=== PATIENT | female | born 1940 | race Two or more races ===

== ENCOUNTER 2025-04-12 23:31 | Inpatient (IN) | payer OTHER ==
[~2025-04-12] VITALS: Ht 152.4 cm; Wt 36.5 kg
--- NOTE | 2025-04-12 23:59 | ED.PDOC ---
History of Present Illness HPI Comments 85-year-old female with a history of hypertension asthma brought in by EMS from [facility] as a transfer. Patient was seen there for dizziness and nausea that started last night, associated with elevated blood pressure in the 200s over high 80s. Patient was found to have elevated troponin I of 0.1. On arrival to our ED, patient denies any history of heart disease, current chest pain, shortness of breath or other symptoms. Chief Complaint: High blood pressure Time Seen by MD: 00:02 Reviewed Notes: Medicine Assistant Notes Information Source: Patient, Emergency Med Personnel Mode of Arrival: EMS Severity: Moderate Timing: Hours Duration: Since onset Past Medical History PAST MEDICAL HISTORY: Asthma, HTN Surgical History: Denies all surgeries PERSONAL SHOPPER History: Denies all PERSONAL SHOPPER Hx Family History Family History: Reviewed,noncontributory to illness Social History Smoker: Non-Smoker Alcohol: Denies ETOH Use Drugs: Denies Drug Use Lives In: Home Constitutional: reports: weakness; denies: chills, diaphoresis, fatigue, fever, malaise, sweats, others EENTM: denies: blurred vision, double vision, ear bleeding, ear discharge, ear drainage, ear pain, ear ringing, eye pain, eye redness, hearing loss, mouth pain, mouth swelling, nasal discharge, nose bleeding, nose congestion, nose pain, photophobia, tearing, throat pain, throat swelling, voice changes, others Respiratory: denies: cough, hemoptysis, orthopnea, SOB at rest, shortness of breath, SOB with excertion, stridor, wheezing, others Cardiovascular: denies: chest pain, dizzy spells, diaphoresis, Dyspnea on exertion, edema, irregular heart beat, left arm pain, lightheadedness, palpitations, PND, syncope, others Gastrointestinal: reports: nausea, vomiting; denies: abdomen distended, abdominal pain, blood streaked bowels, constipated, diarrhea, dysphagia, difficulty swallowing, hematemesis, melena, poor appetite, poor fluid intake, rectal bleeding, rectal pain, others Genitourinary: denies: abnormal vagina bleeding, burning, dyspareunia, dysuria, flank pain, frequency, hematuria, incontinence, pain, , vagina discharge, urgency, others Neurological: denies: dizziness, fainting, headache, left sided numbness, left sided weakness, numbness, paresthesia, pre-existing deficit, right sided numbness, right sided weakness, seizure, speech problems, tingling, tremors, weakness, others Musculoskeletal: denies: back pain, gout, joint pain, joint swelling, muscle pain, muscle stiffness, neck pain, others Integumetry: denies: bruises, change in color, change in hair/nails, dryness, laceration, lesions, lumps, rash, wounds, others Allergic/Immunocompromised: denies: Difficulty Healing, Frequent Infections, Hi ves, Itching, others Hematologic/Lymphatic: denies: anemia, blood clots, easy bleeding, easy bruising, swollen glands, others Endocrine: denies: excessive hunger, excessive sweating, excessive thirst, excessive urination, flushing, intolerance to cold, intolerance to heat, unexplained weight gain, unexplained weight loss, others Psychiatric: denies: anxiety, bipolar disorder, depression, hopeless, panic disorder, schizophrenia, sleepless, suicidal, others Physical Exam General Appearance: No Apparent Distress HEENT: Other (Pupils and face symmetric. Moist mucous membranes.) Neck: Full Range of Motion, Normal Inspection Respiratory: Lungs Clear, No Accessory Muscle Use, No Respiratory Distress, Normal Breath Sounds Cardiovascular: No Edema, No JVD, Regular Rate/Rhythm Breast Exam: Deferred Gastrointestinal: Non Tender, Soft Genitalia: Deferred Pelvic: Deferred Rectal: Deferred Extremities: Normal inspection, Normal range of motion, Non-tender, No pedal edema Neurologic: Alert (Oriented x4), Normal Affect, Normal Mood Cerebellar Function: NOT DONE Reflexes: NOT DONE Skin: Dry, Normal Color, Warm Lymphatic: NOT DONE Was a procedure done? Was a procedure done?: No EKG EKG : Comments Sinus rhythm, rate 81, normal intervals, normal axis, LVH, inferior and lateral T-wave inversion, occasional PVC Differential Dx Considerations may include: ACS, HI, arrhythmia, among others X-Ray, Labs, Meds, VS Vital Signs Date Time Temp Pulse Resp B/P (MAP) Pulse Ox O2 Delivery O2 Flow Rate FiO2 04/13/25 01:24 109 18 97 Room Air* 0 21 04/13/25 01:24 98.1 109 18 166/78 (107) 98 98.1 04/12/25 23:45 81 04/12/25 23:40 82 04/12/25 23:40 98.7 82 14 154/61 (92) 94 98.7 Lab Test 04/13/25 01:01 04/13/25 00:06 Range/Units Troponin I High Sensitivity 154 *H 133 *H </=34 ng/L X-Ray, Labs, Meds, VS Comment 85-year-old female with a history of hypertension and asthma transferred from [facility] with elevated troponin I. Workup from [facility] was reviewed, including CBC, CMP, troponin, renal ultrasound, CT abdomen and pelvis showing cholelithiasis, hepatic and renal cysts, and a distended urinary bladder. Head CT showed nothing acute. Vitals here are unremarkable Exam is unremarkable Rhythm strip independently interpreted by me: Sinus rhythm, rate 81, no ectopy. Chest X-ray Troponin 133 No acute treatment indicated in the ED here. Plan is to admit the patient for Cardiology evaluation. Time of 1ST Reevaluation: 00:00 Reevaluation 1ST: Unchanged Patient Education/Counseling: Diagnosis, Treatment Family Education/Counseling: No Family Present SEPSIS Sepsis Screen Physician Orders Electrocardigram (04/12/25 23:49) Troponin-I Hs (04/13/25 02:56) Chest Xray 1 View (04/13/25 00:33) Vital Signs Date Time Temp Pulse Resp B/P (MAP) Pulse Ox O2 Delivery O2 Flow Rate FiO2 04/13/25 01:24 109 18 97 Room Air* 0 21 04/13/25 01:24 98.1 109 18 166/78 (107) 98 98.1 04/12/25 23:45 81 04/12/25 23:40 82 04/12/25 23:40 98.7 82 14 154/61 (92) 94 98.7 Departure 1 Departure Time of Disposition: 00:34 Impression: Primary Impression: Non-STEMI (non-ST elevated myocardial infarction) Disposition: 09 ADMITTED INPATIENT Admit to: Tele Condition: Guarded Critical Care Note Critical Care Time?: Yes (35 min-critical care time only) Critical care comment: Critical care time including multiple bedside re-evaluations, review of lab and imaging studies, and discussion of the case with the admitting provider. Patient is high risk for hemodynamic decompensation. Stability Stability form required: No Heart Score Heart Score: Heart Score Response (Comments) Value History Slightly Suspicious [address]-Deviation 2 Age >65 2 Risk Factors 1 or 2 risk factors 1 Troponin >3 x's Normal limit 2 Total 7 I personally scribed for ERIN RAY MD ([facility]) on 04/12/25 at 23:59. Electronically submitted by Gume Rosa ([facility]). I personally scribed for ERIN RAY MD ([email or web address]) on 04/13/25 at 00:02. Electronically submitted by Gume Rosa ([facility]). I personally scribed for ERIN RAY MD ([facility]) on 04/13/25 at 01:43. Electronically submitted by Gume Rosa ([facility]). ERIN RAY MD Apr 12, 2025 23:59
[2025-04-13 01:24] VITALS: PULSE 109; RESP 18; O2SAT 97
--- NOTE | 2025-04-13 02:15 | DVH ---
CHEST RADIOGRAPH Indication: Elevated troponin Technique: Single frontal view of the chest was obtained COMPARISON: None FINDINGS: Lines and Tubes: None Lungs: Clear Pleura: No effusion. No pneumothorax. Cardiomediastinal contours: Unremarkable Bones: Unremarkable IMPRESSION: 1. No acute disease.
[2025-04-13] MEDS ORDERED: HYDROcodone-ACET 5/325MG TAB PO PRN (03:45)
[2025-04-13] MEDS ORDERED: ONDANSETRON HCL 4 MG/2 ML VIAL IV PRN (03:45)
[2025-04-13] MEDS ORDERED: ACETAMINOPHEN 325 MG TAB PO PRN (03:45)
[2025-04-13] MEDS: SODIUM CHLORIDE 0.9% 1,000 ML IV SCH (03:45)
[2025-04-13] MEDS ORDERED: DOCUSATE SOD 100 MG CAP PO PRN (03:45)
[2025-04-13 04:17] LABS: Hematocrit 37.9 % (36.0-46.0); Hemoglobin 13.0 g/dL (12.2-16.2); Mean Corpuscular Hemoglobin 31.2 pg (28.0-32.0); Mean Corpuscular Volume 90.8 fL (80.0-100.0); Nucleated Red Blood Cells % 0.1 %
[2025-04-13 04:18] LABS: Alanine Aminotransferase 11 U/L (7-40); Alkaline Phosphatase 103 U/L (46-116); Anion Gap 16 (5-15); BUN/Creatinine Ratio 13.0 (10.0-20.0); Calcium 9.8 mg/dL (8.7-10.4); Glucose 95 mg/dL (74-106); Sodium 143 mmol/L (136-145); Total Protein 6.9 g/dL (5.7-8.2)
[2025-04-13 04:19] LABS: Albumin 4.3 g/dL (3.2-4.8); Bilirubin, Total 0.9 mg/dL (0.2-1.0)
[2025-04-13 04:31] LABS: Blood Urea Nitrogen 9 mg/dL (9-23); Carbon Dioxide 19 mmol/L (20-31); Chloride 108 mmol/L (98-107); Potassium 3.0 mmol/L (3.5-5.1)
[2025-04-13] MEDS ORDERED: MORPHINE SULFATE INJ 2 MG/ml SYRG IV PRN (05:15)
[2025-04-13] MEDS ORDERED: NITROGLYCERIN 0.4 MG SL TAB SL PRN (05:15)
--- NOTE | 2025-04-13 05:20 | DVHHP2 ---
History of Present Illness Reason for Visit: Non-STEMI (non-ST elevated myocardial infarction) History of Present Illness The patient is a 85-year-old female with past medical history of asthma and hyp ertension who presented to [facility] ED with complaint of generalized weakness transferred from [facility]. She was seen at the facility for dizziness, nausea, and associated elevated blood pressure in the 200s. Patient was seen and evaluated in the ED, laboratory data shows WBC 10.0, platelets 270, sodium 143, potassium 3.0, BUN nine, creatinine 0.69, glucose 95, calcium 9.8, troponin 135, blood pressure 166/78, heart rate 109, temperature 98.1 F, O2 saturation 97% on oxygen. Chest x-ray show no acute disease. Patient was given aspirin 325 mg p.o. x1, please see medication orders section in the computer. On my assessment, patient denied chest pain, no headache, no dizziness, no diaphoresis, currently on oxygen, no nausea, no vomiting, no fever, no chills. Patient was admitted for further evaluation and medical management. Past Medical History Asthma, HTN Past Surgical History Denies all surgeries Family History Reviewed, noncontributory to the management of this case. Past Social History The patient lives at home, denies smoking, alcohol or illicit drugs abuse. Review of Systems Constitutional: Yes: Weakness; No: Fever, Chills, Sweats, Malaise, Other Eyes: No: Pain, Vision change, Conjunctivae inflammation, Eyelid inflammation, Other, Redness ENT: No: Ear pain, Ear discharge, Nose pain, Nose discharge, Nose congestion, Mouth pain, Mouth swelling, Throat pain, Throat swelling, Other Respiratory: No: Cough, Dry, Shortness of breath, SOB with excertion, Wheezing, Hemoptysis, Pleuritic Pain, Sputum, Wheezing, Other Cardiovascular: No: Chest Pain, Palpitations, Orthopnea, Paroxysmal Noc. Dyspnea, Edema, Lt Headedness, Other Gastrointestinal: Nausea; No: Vomiting, Abdominal Pain, Diarrhea, Constipation, Melena, Hematochezia, Other Genitourinary: No Dysuria, No Frequency, No Incontinence, No Hematuria, No Retention, No Other Musculoskeletal: No: other, neck pain, shoulder pain, arm pain, back pain, hand pain, leg pain, foot pain Skin: No: Rash, Lesions, Jaundice, Bruising, Other Neurological: Other (Dizziness); No: Weakness, Numbness, Incoordination, Change in speech, Confusion, Seizures Allergies: Uncoded Allergies: nkda (Allergy, Unknown, 04/13/25) Medications Current Medications Medications Dose Ordered Sig/Zahra Route Start Time Stop Time Status Last Admin Dose Admin Aspirin 81 mg DAILY PO 04/13/25 10:00 Amlodipine Besylate 5 mg DAILY PO 04/13/25 10:00 Metoprolol Tartrate 25 mg BID PO 04/13/25 10:00 Clonidine HCl 0.1 mg Q4HP PRN PO 04/13/25 03:45 04/13/25 04:09 0.1 MG Sodium Chloride 1,000 ml @ 60 mls/hr [id number] IV 04/13/25 03:45 04/13/25 03:45 60 MLS/HR Acetaminophen/ Hydrocodone Bitart 1 tab Q4HP PRN PO 04/13/25 03:45 Ondansetron HCl 4 mg Q4HP PRN IV 04/13/25 03:45 Docusate Sodium 100 mg BIDPRN PRN PO 04/13/25 03:45 Acetaminophen 500 mg Q6HP PRN PO 04/13/25 03:45 Exam Vital Signs Vital Signs Date Time Temp Pulse Resp B/P (MAP) Pulse Ox O2 Delivery O2 Flow Rate FiO2 04/13/25 04:25 161/73 (102) 04/13/25 03:44 98.1 60 18 98 98.1 04/13/25 01:24 Room Air* 0 21 General Appearance: Alert, Oriented X3, Cooperative, No acute distress HEENT: Atraumatic, PERRLA, EOMI, Mucous membr. moist/pink Respiratory: Clear to auscultation, Normal air movement Cardiovascular: Regular rate, Normal S1, Normal S2, No murmurs Abdominal: Normal bowel sounds, Soft, No tenderness, No hepatospenomegaly, No masses Extremities: No clubbing, No cyanosis, No edema, Normal pulses, No tenderness/swelling Skin: No rashes, No breakdown, No significant lesion Neuro: Normal speech, Normal tone, Sensation intact, Cranial nerves 3-12 NL, Reflexes 2+, Other (Generalized weakness) Psych/Mental Status: Mental status NL, Mood NL Labs/Xrays Labs Test 04/13/25 02:50 04/13/25 00:06 Range/Units Troponin I High Sensitivity 135 *H </=34 ng/L White Blood Count 10.0 4.4-10.8 10^3/uL Red Blood Count 4.17 4.0-5.20 10^6/uL Hemoglobin 13.0 12.2-16.2 g/dL Hematocrit 37.9 36.0-46.0 % Mean Corpuscular Volume 90.8 80.0-100.0 fL Mean Corpuscular Hemoglobin 31.2 28.0-32.0 pg Mean Corpuscular Hemoglobin Concent 34.3 32.0-36.0 g/dL Red Cell Distribution Width 12.9 11.8-14.3 % Platelet Count 270 140-450 10^3/uL Mean Platelet Volume 7.6 6.9-10.8 fL Neutrophils (%) (Auto) 83.5 H 37.0-80.0 % Lymphocytes (%) (Auto) 9.6 L 10.0-50.0 % Monocytes (%) (Auto) 6.6 0.0-12.0 % Eosinophils (%) (Auto) 0.0 0.0-7.0 % Basophils (%) (Auto) 0.3 0.0-2.0 % Neutrophils # (Auto) 8.4 1.6-8.6 10 ^3/uL Lymphocytes # (Auto) 1.0 0.4-5.4 10 ^3/uL Monocytes # (Auto) 0.7 0-1.3 10 ^3/uL Eosinophils # (Auto) 0 0-0.8 10 ^3/uL Basophils # (Auto) 0 0-0.2 10 ^3/uL Nucleated Red Blood Cells 0.1 % Sodium Level 143 136-145 mmol/L Potassium Level 3.0 L 3.5-5.1 mmol/L Chloride Level 108 H 98-107 mmol/L Carbon Dioxide Level 19 L 20-31 mmol/L Anion Gap 16 H 5-15 Blood Urea Nitrogen 9 9-23 mg/dL Creatinine 0.69 0.550-1.02 mg/dL Glomerular Filtration Rate Calc 85 >90 mL/min BUN/Creatinine Ratio 13.0 10.0-20.0 Serum Glucose 95 74-106 mg/dL Calcium Level 9.8 8.7-10.4 mg/dL Total Bilirubin 0.9 0.2-1.0 mg/dL Aspartate Amino Transferase (AST) 24 <34 U/L Alanine Aminotransferase (ALT) 11 7-40 U/L Alkaline Phosphatase 103 46-116 U/L Total Protein 6.9 5.7-8.2 g/dL Albumin 4.3 3.2-4.8 g/dL PATIENT: AMBROSIO MILLER ACCT: [id number] UNIT: [id number] : 1940 LOC: ER ROOM / BED: / AGE / SEX: 85 / F ADM STATUS: REG ER SERVICE [id number] ORDERING PHYSICIAN: ERIN RAY MD PROCEDURE(s): CXR1 - CHEST XRAY 1 VIEW REASON: Elevated troponin ORDER NUMBER(s): [id number], ACCESSION NUMBER(s): [id number] CHEST RADIOGRAPH Indication: Elevated troponin Technique: Single frontal view of the chest was obtained COMPARISON: None FINDINGS: Lines and Tubes: None Lungs: Clear Pleura: No effusion. No pneumothorax. Cardiomediastinal contours: Unremarkable Bones: Unremarkable IMPRESSION: 1. No acute disease. Assessment/Plan Assessment/Plan Generalized weakness Hypertensive urgency Hypokalemia Non-STEMI (non-ST elevated myocardial infarction) Plan 1. Admit to telemetry unit 2. Breathing treatment 3. Pain control management 4. Management of fluids and electrolytes 5. Consultation for Cardiology 6. Diagnostic tests chest x-ray 7. DVT prophylaxis-on aspirin 8. Repeat labs CBC, CMP in a.m. 9. Continue with current medical management 10. Treatment plan discussed with patient and RN. Patient verbalized understanding. Plan discussed with: Patient, Other (RN) My Orders Orders - MURRAY ANDRES DNP Procedure Category Date Status Time * Cardiology Consult CONS 04/13/25 Transmitted 03:44 Aspirin Tablet PHA 04/13/25 In Process 10:00 Amlodipine Tablet PHA 04/13/25 In Process (Norvasc Tablet) 10:00 Metoprolol Tartrate PHA 04/13/25 In Process Tablet (Lopressor Ta 10:00 Clonidine Hcl Tablet PHA 04/13/25 In Process (Catapres Tablet) 03:45 Allergies CORBY 04/13/25 In Process 03:44 Code Status CODE 04/13/25 Transmitted 03:44 Sodium Chloride 0.9% PHA 04/13/25 In Process 03:45 Oxygen Per Hour RT 04/13/25 Transmitted 03:44 Hydrocodone-Acet PHA 04/13/25 In Process 5/325mg Tab ([place] 03:45 Ondansetron Hcl PHA 04/13/25 In Process (Zofran) 03:45 Docusate Sodium PHA 04/13/25 In Process Capsule (Colace 03:45 Fall Risk Precautions CORBY 04/13/[address] 03:44 Complete Blood Count LAB 04/14/25 Verified 04:00 Comprehensive LAB 04/14/25 Verified Metabolic Panel 04:00 Cardiac DIET 04/13/25 Transmitted Diet-2gna,Lofat,Lochol Breakfast Condition: Serious CORBY 04/13/25 In Process 03:44 Acetaminophen Tablet PHA 04/13/25 In Process (Tylenol Tablet) 03:45 Maintain Bed Rest CORBY 04/13/25 In Process 03:44 Sequential CORBY 04/13/25 In Process Compression Device Problem List: (1) Generalized weakness (2) Hypertensive urgency (3) Hypokalemia (4) Non-STEMI (non-ST elevated myocardial infarction) Date of Service: Apr 13, 2025 Billing Provider: MURRAY ANDRES DNP Common Visit Codes: [id number] INP/OBS CARE (HIGH) MURRAY ANDRES DNP Apr 13, 2025 05:20
[2025-04-13] MEDS: POTASSIUM CHL 20 Meq TABLET PO ONE ×2 (05:35→17:19)
--- NOTE | 2025-04-13 07:03 | ECG ---
[facility] Test Date: 2025-04-12 Test Time: 23:45:52 Pat Name: AMBROSIO MILLER Department: ED Room: [address] [place] [address] Gender: F Patient Service Representative: SU : 1940 Requested By: ERIN BROWN Order Number: [id number] Reading MD: Measurements Intervals Mobile Rate: 81 P: 34 WA: 173 QRS: -20 QRSD: 100 T: 258 QT: 386 QTc: 448 Interpretive Statements Sinus rhythm Ventricular premature complex Left atrial enlargement LVH with secondary repolarization abnormality Please click the below link to view image of tracing.
[2025-04-13 08:06] VITALS: PULSE 62; RESP 16; O2SAT 95
[2025-04-13] MEDS: METOPROLOL TARTRATE 25 MG TAB PO SCH (10:14)
[2025-04-13 11:20] LABS: Sodium 142 mmol/L (136-145)
[2025-04-13 11:21] LABS: Anion Gap 10 (5-15); Carbon Dioxide 24 mmol/L (20-31)
[2025-04-13 11:22] LABS: Calcium 9.8 mg/dL (8.7-10.4); Chloride 108 mmol/L (98-107); Potassium 3.1 mmol/L (3.5-5.1)
[2025-04-13 11:27] LABS: BUN/Creatinine Ratio 16.9 (10.0-20.0); Blood Urea Nitrogen 13 mg/dL (9-23); Magnesium 2.1 mg/dL (1.6-2.6); Triglycerides 84 mg/dL (< 150)
[2025-04-13 11:30] LABS: INR 1.01 (0.9-1.15); Partial Thromboplastin Time 25.6 SEC (24.5-34.5); Prothrombin Time 10.7 sec (9.3-11.8)
[2025-04-13 11:31] LABS: Cholesterol 244 mg/dL (< 200); Glucose 127 mg/dL (74-106); HDL Cholesterol 67 mg/dL (40-59)
[2025-04-13 17:00] VITALS: BP 131/56; PULSE 63; RESP 16; TEMP 98.5; O2SAT 97
[2025-04-13] MEDS ORDERED: THEO400T13 PO (17:12)
[2025-04-13] MEDS ORDERED: ATOR10TA PO (17:12)
[2025-04-13] MEDS ORDERED: ALBU108A5 IN (17:12)
[2025-04-13 20:00] VITALS: PULSE 46
[2025-04-13 21:00] VITALS: BP 146/56; PULSE 53; RESP 17; TEMP 98.4; O2SAT 95
--- NOTE | 2025-04-13 21:35 | DVHSR ---
APPROVED REPORT EXAM: Two-dimensional and M-mode echocardiogram with Doppler and color Doppler. Blood Pressure: 135/75 mmHg INDICATION Chest Pain RISK FACTORS Height: 5'0", Weight: 90 DIMENSIONS LVDd4.6 (3.8-5.7cm)LA (2D)3.5 (1.9-4.0cm)Aortic Root2.7 (2.0-3.7cm) LVDs3.3 (2.5-4.0cm)LA (MM) (1.9-4.0cm)Aortic Cusp Exc1.4 (1.5-2.0cm) EF (%) 50.0 (55-70%)Rt. Atrium4.0 (1.9-4.0cm)Asc. Aorta cm IVSd1.1 (0.7-1.1cm)RV (D)3.1 (1.8-2.4cm) PWd1.1 (0.7-1.1cm) Mitral Valve MitralMitral Stenosis E wave0.56m/sMV Mean GR.mmHg A wave1.07m/sMV Peak GR.mmHg E/A ratio0.52D MVAcm2 DECEL [id number] 1/2 Timems Aortic Valve Aortic ValveAortic Stenosis V10.90m/Branden Mean GR.5mmHg V21.49m/Branden Peak GR.9mmHg LVOT Diameter1.7 (1.8-2.4cm)Doppler AVA1.37cm2 AI P 1/2 Bcdo755.79ms Pulmonic Valve V20.94m/s Tricuspid Valve TR Velocity3.13m/s [id number] Other Information Technically limited study due to body habitus. Conclusion LV IS MODERATELY DILATED LOW NORMAL LV EJECTION FRACTION LV EF IS 50% NORMAL VALVES MODERATELY SEVERE AORTIC REGURGITATION SLIGHTLY DILATED RV MILD PULMONARY HYPERTENSION RVSP IS 42 MM OF HG AND IS HIGH NO EFFUSION
[2025-04-13 22:38] LABS: Urine Protein, UAD Negative (Negative)
[2025-04-14] VITALS (16 sets, daily range): BP systolic 136–167; BP diastolic 66–97; PULSE 52–78; RESP 12–18; TEMP 97.9–98.6; O2SAT 10–98
[2025-04-14] MEDS: hydrALAZINE HCL 20 MG/ML VL IV ONE (05:38)
[2025-04-14 06:19] LABS: Hematocrit 38.6 % (36.0-46.0); Hemoglobin 12.8 g/dL (12.2-16.2); Mean Corpuscular Hemoglobin 30.3 pg (28.0-32.0); Mean Corpuscular Volume 91.3 fL (80.0-100.0); Nucleated Red Blood Cells % 0.1 %
[2025-04-14 06:24] LABS: Alanine Aminotransferase 10 U/L (7-40); Albumin 4.0 g/dL (3.2-4.8); Alkaline Phosphatase 92 U/L (46-116); Anion Gap 11 (5-15); BUN/Creatinine Ratio 18.7 (10.0-20.0); Bilirubin, Total 1.0 mg/dL (0.2-1.0); Blood Urea Nitrogen 14 mg/dL (9-23); Calcium 9.5 mg/dL (8.7-10.4); Carbon Dioxide 25 mmol/L (20-31); Chloride 106 mmol/L (98-107); Glucose 79 mg/dL (74-106); Sodium 142 mmol/L (136-145); Total Protein 6.3 g/dL (5.7-8.2)
[2025-04-14 06:34] LABS: Potassium 3.1 mmol/L (3.5-5.1)
[2025-04-14] MEDS: POTASSIUM CHL 20 Meq TABLET PO ONE (08:28)
[2025-04-14] MEDS ORDERED: POTASSIUM CHL 20 Meq TABLET PO ONE (13:00)
[2025-04-14] MEDS: ATORVASTATIN 20 MG TAB PO ONE (13:00)
[2025-04-14] MEDS: cefTRIAXone 1GM/50ML D5W 50 ML IV ONE (13:00)
--- NOTE | 2025-04-14 13:00 | DVHPN2 ---
Subjective Seen and examined at bedside, for [facility] today. Family at bedside. Changes from previous H/P or p: No Changes Eyes: No Pain, No Vision change, No Conjunctivae inflammation, No Eyelid inflammation, No Other, No Redness ENT: No Ear pain, No Ear discharge, No Nose pain, No Nose discharge, No Nose congestion, No Mouth pain, No Mouth swelling, No Throat pain, No Throat swelling, No Other Cardiovascular: No Chest Pain, No Palpitations, No Orthopnea, No Paroxysmal Noc. Dyspnea, No Edema, No Lt Headedness, No Other Respiratory: No Cough, No Dry, No Shortness of breath, No SOB with excertion, No Wheezing, No Hemoptysis, No Pleuritic Pain, No Sputum, No Other Gastrointestinal: No Vomiting, No Abdominal Pain, No Diarrhea, No Constipation, No Melena, No Hematochezia, No Other Genitourinary: No Dysuria, No Frequency, No Incontinence, No Hematuria, No Retention, No Other Musculoskeletal: No other, No neck pain, No shoulder pain, No arm pain, No back pain, No hand pain, No leg pain, No foot pain Skin: No Rash, No Lesions, No Jaundice, No Bruising, No Other Objective Vitals Vital Signs Date Time Temp Pulse Resp B/P (MAP) Pulse Ox O2 Delivery O2 Flow Rate FiO2 04/14/25 09:29 75 04/14/25 09:00 98.5 18 150/74 (99) 96 98.5 04/14/25 08:00 Room Air* 0 21 Intake/Output Intake and Output 04/14/25 06:59 Intake Total 390 ml Output Total 1175 ml Balance -785 ml Intake Oral 150 ml IV Total 240 ml Output Urine Total 1175 ml General Appearance: Alert, Oriented X3, Cooperative, No acute distress Lungs: Clear to auscultation Cardiovascular: Regular rate, Normal S1, Normal S2 Psych/Mental Status: Mental status NL Medications Current Medications Medications Dose Ordered Sig/Zahra Route Start Time Stop Time Status Last Admin Dose Admin Aspirin 81 mg DAILY PO 04/13/25 10:00 04/14/25 08:28 81 MG Amlodipine Besylate 5 mg DAILY PO 04/13/25 10:00 04/14/25 08:29 5 MG Metoprolol Tartrate 25 mg BID PO 04/13/25 10:00 04/14/25 08:29 25 MG Clonidine HCl 0.1 mg Q4HP PRN PO 04/13/25 03:45 04/13/25 04:09 0.1 MG Acetaminophen/ Hydrocodone Bitart 1 tab Q4HP PRN PO 04/13/25 03:45 Ondansetron HCl 4 mg Q4HP PRN IV 04/13/25 03:45 Docusate Sodium 100 mg BIDPRN PRN PO 04/13/25 03:45 Acetaminophen 500 mg Q6HP PRN PO 04/13/25 03:45 Nitroglycerin 0.4 mg Q5MINP PRN SL 04/13/25 05:15 Morphine Sulfate 2 mg Q30M PRN IV 04/13/25 05:15 Atorvastatin Calcium 40 mg HS PO 04/14/25 22:00 UNV Laboratory Results Laboratory Tests 04/14/25 04:57 Chemistry Test 04/14/25 04:57 Albumin 4.0 g/dL (3.2-4.8) Calcium Level 9.5 mg/dL (8.7-10.4) Total Protein 6.3 g/dL (5.7-8.2) LFT Test 04/14/25 04:57 Alanine Aminotransferase (ALT) 10 U/L (7-40) Alkaline Phosphatase 92 U/L (46-116) Aspartate Amino Transferase (AST) 22 U/L (<34) Total Bilirubin 1.0 mg/dL (0.2-1.0) Urinalysis Test 04/13/25 22:26 Urine Color Colorless (Yellow) Urine Clarity Clear (Clear) Urine pH 6.5 (5.0-9.0) Urine Specific [place] 1.011 (1.001-1.035) Urine Protein Negative (Negative) Urine Ketones 1+ (Negative) H Urine Blood 3+ /uL (Negative) H Urine Nitrite Negative (Negative) Urine Bilirubin Negative (Negative) Urine Urobilinogen Normal mg/dL (Negative) Urine Leukocyte Esterase 1+ /uL (Negative) Urine RBC 190 /hpf (0 - 4) Urine Microscopic WBC 12 /HPF (0-5) H Urine Squamous Epithelial Cells None seen /hpf (<5) Urine Bacteria None seen /hpf (None Seen) Urine Mucus Few (None Seen) Urine Glucose Normal mg/dL (Normal) Assessment/Plan Assessment/Plan Hypertensive urgency- Monitor and adjust meds Hypokalemia- Supplement, start Aldactone Non-STEMI (non-ST elevated myocardial infarction)- [facility] today Severe Aortic Regurg- Outpatient Structural Heart critical care time 39 mins Plan discussed with: Patient My Orders Orders - ALICIA TREVINO MD Procedure Category Date Status Time Ceftriaxone 1gm/50ml PHA 04/14/25 Logged D5w (Rocephin) 13:00 Ceftriaxone 1gm/50ml PHA 04/15/25 Logged D5w (Rocephin) 09:00 Potassium Er Tablet PHA 04/14/25 Logged (Klor-Con Tablet) 13:00 Basic Metabolic Panel LAB 04/15/25 Verified 04:00 Magnesium LAB 04/15/25 Verified 04:00 Spironolactone PHA 04/15/25 Logged (Aldactone) 10:00 Spironolactone PHA 04/14/25 Logged (Aldactone) 18:00 Date of Service: Apr 14, 2025 Billing Provider: ALICIA TREVINO MD Common Visit Codes: [id number] CARE 30-74 MIN ALICIA TREVINO MD Apr 14, 2025 13:00
[2025-04-14] MEDS: POTASSIUM CHLORIDE 60 MEQ, LIDOCAINE 1% (LOCAL ANESTH.) 6 ML in SODIUM CHL 0.9% 500 ML IV ONE (13:05)
[2025-04-14] MEDS: IODIXANOL 320MG/ML 100ML BTL IV ONE (14:41)
[2025-04-14] MEDS: ANGIOMAX 250 MG VIAL IV ONE (14:43)
[2025-04-14] MEDS: VERAPAMIL 2.5MG/ML INJ 2ML VIAL IV ONE (14:43)
[2025-04-14] MEDS: fentaNYL CITRATE 100 MCG/2 ML VL ONE (14:43)
[2025-04-14] MEDS: MIDAZOLAM HCL 2MG/2ML 2ml VIAL (1mg/ml) ONE (14:43)
[2025-04-14] MEDS: SODIUM CHL 0.9% 0 ML ONE (14:44)
[2025-04-14] MEDS: LIDOCAINE 2%HCL (LOCAL ANESTH.) INJ 20ML MDV ONE (14:44)
--- NOTE | 2025-04-14 15:25 | DVHOP2 ---
Operative Report Operative Report CARDIAC DIRT CONTRACTOR PROCEDURE REPORT [place], [place] Date of Service: 04/14/25 Computer Network Support Specialist: Vargas Agarwal MD PROCEDURES PERFORMED: Coronary angiogram, left heart catheterization, conscious sedation administration and supervision, less than 15 minutes; fluoroscopy use and interpretation. US guided vascular access saved to pacs system PREOPERATIVE DIAGNOSES: ACS POSTOP DIAGNOSIS: cad DESCRIPTION OF PROCEDURE: The patient or appropriate family signed informed consent understanding the risks, benefits and alternatives of the procedure, they wished to proceed. The patient was brought to the cardiac field laboratory operator in n.p.o. state. The patient was prepped in a sterile fashion. Sedation was used per cardiac cath protocol. I administered 2 mL of 2% lidocaine to the right wrist. With an antegrade front wall puncture. I cannulated the right radial artery and placed a 6-[place] Glidesheath slender. I used US guidance and assessed a patent R radial artery. Next, an intra-arterial spasmolytic was administered. Next, a - 5French [place] catheter and were used for coronary angiogram and LVEDP measurement and pressure pullback. At the completion of procedure, all guides and wires were removed, and there were no immediate complications. FINDINGS: RCA: Moderate vessel off the right sinus of Valsalva, there is no severe flow limiting stenosis. 30% ostial stenosis. super dominant vessel. LEFT MAIN: Moderate size left main, it bifurcates into LAD and circumflex. no severe stenosis. mild proximal plaque CIRCUMFLEX: Moderate caliber vessel coming off the left main with no flow limiting stenosis. LAD: LAD is a moderate caliber vessel coming of the left main. 60% proximal stenosis noted. distal LAD is small vessel LVEDP of 12 mmhg CONCLUSIONS: 1. moderate non critical CAD 2. severe frailty, pt weights 36 kg per notes 3. severe HTN, bp 198 during [facility] PLAN: Aggressive risk factor modification and medical management for the patient. VARGAS AGARWAL MD Apr 14, 2025 15:25
[2025-04-14] MEDS: SPIRONOLACTONE 25 MG TAB PO SCH (17:56)
[2025-04-14] MEDS ORDERED: SPIRONOLACTONE 25 MG TAB PO SCH (18:00)
--- NOTE | 2025-04-14 19:24 | DVHCONRES ---
Date Seen: Apr 14, 2025 Resident Creating Document: AINSLEY CANNON RESDIENT History of Present Illness This is an 85-year-old female with past medical history of hypertension and asthma came to the hospital due to nausea, vomiting and dizziness since 3 days. She also reports of epigastric pain and diarrhea 2 days back. She denies chest pain, shortness of breaths, sputum, any recent sick contacts. PMHx: Hypertension asthma Social history: Denies smoking, alcohol or any other drug use Home medication: Losartan and albuterol inhaler, patient is noncompliant to antihypertensive medication Allergic history: NKDA Patient seen and examined at the bedside. Patient is feeling better since admi ssion and does not have any active complaint. Family History: FH: leukemia G8 MOTHER G8 FATHER Allergies: Uncoded Allergies: nkda (Allergy, Unknown, 04/13/25) Home Meds Reported Medications Albuterol Sulfate (Albuterol Sulfate Hfa) 108 Mcg/Act Aer, 108 MCG IN, AER 04/13/25 Atorvastatin Calcium (Lipitor) 10 Mg Tab, 1 TAB PO QPM, #90 TAB 1 Refill 04/13/25 Theophylline (Theophylline Er) 400 Mg Tab, 400 MG PO TID for 30 Days, MG 04/13/25 Current Medications Current Medications Medications (Trade) Dose Ordered Sig/Zahra Route PRN Reason Start Time Stop Time Status Last Admin Atorvastatin Calcium (Lipitor) 40 mg HS PO 04/14/25 22:00 UNV Ceftriaxone Sodium 50 ml @ 100 mls/hr DAILY@09 IV 04/15/25 09:00 Spironolactone (Aldactone) 25 mg DAILY PO 04/15/25 10:00 Cancel Spironolactone (Aldactone) 25 mg BIDD PO 04/14/25 18:00 Cancel Albuterol (Ventolin Medneb) 2.5 mg Q4HPRN PRN NEB SHORTNESS OF BREATH 04/14/25 13:15 Spironolactone (Aldactone) 25 mg BIDD PO 04/14/25 18:00 04/14/25 17:56 Atorvastatin Calcium (Lipitor) 40 mg HS PO 04/14/25 22:00 Vital Signs Vital Signs Date Time Temp Pulse Resp B/P (MAP) Pulse Ox O2 Delivery O2 Flow Rate FiO2 04/14/25 16:20 66 12 145/66 (92) 95 04/14/25 15:26 97.9 97.9 04/14/25 13:47 Room Air 04/14/25 13:47 0 21 Physical Exam General Appearance: Alert, Oriented X3, Cooperative, No acute distress HEENT: Atraumatic, PERRLA, EOMI, Mucous membrane moist/pink Respiratory: Clear to auscultation, Normal air movement Cardiovascular: Regular rate, Normal S1, Normal S2, No murmurs, no chest wall tenderness Abdominal: Normal bowel sounds, Soft, No tenderness, No hepatospenomegaly, No masses Extremities: No clubbing, No cyanosis, No edema, Normal pulses, No tenderness/swelling Skin: No rashes, No breakdown, No significant lesion Neuro: Normal gait, Normal speech, Strength at 5/5 X4 ext, Normal tone, Sensation intact, Cranial nerves 3-12 NL, Reflexes 2+ Psych/Mental Status: Mental status NL, Mood NL Labs/Diagnostic Data Labs Test 04/14/25 04:57 04/13/25 22:26 04/13/25 11:06 04/13/25 02:50 Range/Units White Blood Count 5.3 # 4.4-10.8 10^3/uL Red Blood Count 4.23 4.0-5.20 10^6/uL Hemoglobin 12.8 12.2-16.2 g/dL Hematocrit 38.6 36.0-46.0 % Mean Corpuscular Volume 91.3 80.0-100.0 fL Mean Corpuscular Hemoglobin 30.3 28.0-32.0 pg Mean Corpuscular Hemoglobin Concent 33.2 32.0-36.0 g/dL Red Cell Distribution Width 13.0 11.8-14.3 % Platelet Count 256 140-450 10^3/uL Mean Platelet Volume 6.9 6.9-10.8 fL Neutrophils (%) (Auto) 55.3 37.0-80.0 % Lymphocytes (%) (Auto) 36.9 10.0-50.0 % Monocytes (%) (Auto) 6.4 0.0-12.0 % Eosinophils (%) (Auto) 0.5 0.0-7.0 % Basophils (%) (Auto) 0.9 0.0-2.0 % Neutrophils # (Auto) 2.9 1.6-8.6 10 ^3/uL Lymphocytes # (Auto) 2.0 0.4-5.4 10 ^3/uL Monocytes # (Auto) 0.3 0-1.3 10 ^3/uL Eosinophils # (Auto) 0 0-0.8 10 ^3/uL Basophils # (Auto) 0 0-0.2 10 ^3/uL Nucleated Red Blood Cells 0.1 % Sodium Level 142 136-145 mmol/L Potassium Level 3.1 L 3.5-5.1 mmol/L Chloride Level 106 98-107 mmol/L Carbon Dioxide Level 25 20-31 mmol/L Anion Gap 11 5-15 Blood Urea Nitrogen 14 9-23 mg/dL Creatinine 0.75 0.550-1.02 mg/dL Glomerular Filtration Rate Calc 78 >90 mL/min BUN/Creatinine Ratio 18.7 10.0-20.0 Serum Glucose 79 74-106 mg/dL Calcium Level 9.5 8.7-10.4 mg/dL Total Bilirubin 1.0 0.2-1.0 mg/dL Aspartate Amino Transferase (AST) 22 <34 U/L Alanine Aminotransferase (ALT) 10 7-40 U/L Alkaline Phosphatase 92 46-116 U/L Total Protein 6.3 5.7-8.2 g/dL Albumin 4.0 3.2-4.8 g/dL Urine Color Colorless Yellow Urine Clarity Clear Clear Urine pH 6.5 5.0-9.0 Urine Specific [place] 1.011 1.001-1.035 Urine Protein Negative Negative Urine Ketones 1+ H Negative Urine Blood 3+ H Negative /uL Urine Nitrite Negative Negative Urine Bilirubin Negative Negative Urine Urobilinogen Normal Negative mg/dL Urine Leukocyte Esterase 1+ Negative /uL Urine RBC 190 0 - 4 /hpf Urine Microscopic WBC 12 H 0-5 /HPF Urine Squamous Epithelial Cells None seen <5 /hpf Urine Bacteria None seen None Seen /hpf Urine Mucus Few None Seen Urine Glucose Normal Normal mg/dL Prothrombin Time 10.7 9.3-11.8 sec Prothrombin Time INR 1.01 0.9-1.15 Activated Partial Thromboplast Time 25.6 24.5-34.5 SEC Magnesium Level 2.1 1.6-2.6 mg/dL Triglycerides Level 84 < 150 mg/dL Cholesterol Level 244 H < 200 mg/dL LDL Cholesterol 163 H < 100 mg/dL HDL Cholesterol 67 H 40-59 mg/dL Troponin I High Sensitivity 135 *H </=34 ng/L Thyroid Stimulating Hormone (TSH) 0.38 L 0.55-4.78 uIU/mL Test 04/13/25 00:06 Range/Units Hemoglobin A1c 5.4 <5.7 % A1C Assessment Hypertensive emergency leading to NSTEMI NSTEMI, likely type 1 ? Gastroenteritis Hypertension Asthma Malnutrition * EKGs shows sinus rhythm, LVH with strain pattern (diffuse ST depression with T-wave inversion) * Troponin mildly raised stable * Echo shows LVEF 50% with LV moderately dilated, moderate to CVA AR with mild pulmonary hypertension RVSP 42 Plan/Recommendation (Case discussed with Dr. Fox) * Continue aspirin atorvastatin * Continue carvedilol and lisinopril * Left heart catheterization performed, showed moderate noncritical coronary artery disease * We sign of the patient, she may follow up with Cardiology on outpatient basis * Rest of plan, per primary team Thank you for allowing us to participate in this patient's care. Please call if you have any questions or concerns. Plan discussed with: Patient, Son, Other (RN) AINSLEY CANNON RESJERONIMOENT Apr 14, 2025 19:24
[2025-04-14] MEDS: ATORVASTATIN 20 MG TAB PO SCH (21:14)
[2025-04-14] MEDS: LISINOPRIL 5 MG TAB PO ONE (21:16)
[2025-04-14] MEDS: CARVEDILOL 3.125 MG TAB PO ONE (21:16)
[2025-04-14] MEDS ORDERED: ATORVASTATIN 20 MG TAB PO SCH (22:00)
[2025-04-14] MEDS: ALBUTEROL SULF 2.5 MG/0.5ML(0.5%) NEB SOLN NEB PRN (22:30)
[2025-04-15] VITALS (10 sets, daily range): BP systolic 128–137; BP diastolic 59–70; PULSE 56–73; RESP 16–20; TEMP 97.8–98; O2SAT 93–99
[2025-04-15 08:26] LABS: Potassium 4.5 mmol/L (3.5-5.1); Sodium 139 mmol/L (136-145)
[2025-04-15 08:27] LABS: Anion Gap 10 (5-15); Carbon Dioxide 22 mmol/L (20-31)
[2025-04-15 08:32] LABS: Glucose 88 mg/dL (74-106)
[2025-04-15 08:33] LABS: BUN/Creatinine Ratio 22.2 (10.0-20.0); Blood Urea Nitrogen 18 mg/dL (9-23); Magnesium 2.0 mg/dL (1.6-2.6)
[2025-04-15 08:47] LABS: Calcium 10.4 mg/dL (8.7-10.4); Chloride 107 mmol/L (98-107)
[2025-04-15] MEDS: cefTRIAXone 1GM/50ML D5W 50 ML IV SCH (09:54)
[2025-04-15] MEDS: LISINOPRIL 5 MG TAB PO SCH (09:55)
[2025-04-15] MEDS: CARVEDILOL 3.125 MG TAB PO SCH (09:55)
[2025-04-15] MEDS ORDERED: SPIRONOLACTONE 25 MG TAB PO SCH (10:00)
[2025-04-15] MEDS ORDERED: LOSA-533 PO (15:31)
[2025-04-15] MEDS ORDERED: ATOR20TA50 PO (15:31)
[2025-04-15] MEDS ORDERED: ASPI-325 PO (15:31)
[2025-04-15] MEDS ORDERED: SPIR25TA PO (15:33)
[2025-04-15] MEDS ORDERED: CARV-214 PO (15:33)
--- NOTE | 2025-04-15 15:40 | DVHDS2 ---
Discharge Summary Date of Admission Apr 13, 2025 at 05:05 Date of Discharge: Apr 15, 2025 Admitting Diagnosis Chest Pain Labs/Diagnostic Data: Laboratory Results Test 04/15/25 07:52 04/14/25 04:57 04/13/25 22:26 04/13/25 11:06 Sodium Level 139 mmol/L (136-145) Potassium Level 4.5 mmol/L (3.5-5.1) Chloride Level 107 mmol/L (98-107) Carbon Dioxide Level 22 mmol/L (20-31) Anion Gap 10 (5-15) Blood Urea Nitrogen 18 mg/dL (9-23) Creatinine 0.81 mg/dL (0.550-1.02) Glomerular Filtration Rate Calc 71 mL/min (>90) BUN/Creatinine Ratio 22.2 (10.0-20.0) Serum Glucose 88 mg/dL (74-106) Calcium Level 10.4 mg/dL (8.7-10.4) Magnesium Level 2.0 mg/dL (1.6-2.6) White Blood Count 5.3 10^3/uL (4.4-10.8) Red Blood Count 4.23 10^6/uL (4.0-5.20) Hemoglobin 12.8 g/dL (12.2-16.2) Hematocrit 38.6 % (36.0-46.0) Mean Corpuscular Volume 91.3 fL (80.0-100.0) Mean Corpuscular Hemoglobin 30.3 pg (28.0-32.0) Mean Corpuscular Hemoglobin Concent 33.2 g/dL (32.0-36.0) Red Cell Distribution Width 13.0 % (11.8-14.3) Platelet Count 256 10^3/uL (140-450) Mean Platelet Volume 6.9 fL (6.9-10.8) Neutrophils (%) (Auto) 55.3 % (37.0-80.0) Lymphocytes (%) (Auto) 36.9 % (10.0-50.0) Monocytes (%) (Auto) 6.4 % (0.0-12.0) Eosinophils (%) (Auto) 0.5 % (0.0-7.0) Basophils (%) (Auto) 0.9 % (0.0-2.0) Neutrophils # (Auto) 2.9 10 ^3/uL (1.6-8.6) Lymphocytes # (Auto) 2.0 10 ^3/uL (0.4-5.4) Monocytes # (Auto) 0.3 10 ^3/uL (0-1.3) Eosinophils # (Auto) 0 10 ^3/uL (0-0.8) Basophils # (Auto) 0 10 ^3/uL (0-0.2) Nucleated Red Blood Cells 0.1 % Total Bilirubin 1.0 mg/dL (0.2-1.0) Aspartate Amino Transferase (AST) 22 U/L (<34) Alanine Aminotransferase (ALT) 10 U/L (7-40) Alkaline Phosphatase 92 U/L (46-116) Total Protein 6.3 g/dL (5.7-8.2) Albumin 4.0 g/dL (3.2-4.8) Urine Color Colorless (Yellow) Urine Clarity Clear (Clear) Urine pH 6.5 (5.0-9.0) Urine Specific [place] 1.011 (1.001-1.035) Urine Protein Negative (Negative) Urine Ketones 1+ (Negative) Urine Blood 3+ /uL (Negative) Urine Nitrite Negative (Negative) Urine Bilirubin Negative (Negative) Urine Urobilinogen Normal mg/dL (Negative) Urine Leukocyte Esterase 1+ /uL (Negative) Urine RBC 190 /hpf (0 - 4) Urine Microscopic WBC 12 /HPF (0-5) Urine Squamous Epithelial Cells None seen /hpf (<5) Urine Bacteria None seen /hpf (None Seen) Urine Mucus Few (None Seen) Urine Glucose Normal mg/dL (Normal) Prothrombin Time 10.7 sec (9.3-11.8) Prothrombin Time INR 1.01 (0.9-1.15) Activated Partial Thromboplast Time 25.6 SEC (24.5-34.5) Triglycerides Level 84 mg/dL (< 150) Cholesterol Level 244 mg/dL (< 200) LDL Cholesterol 163 mg/dL (< 100) HDL Cholesterol 67 mg/dL (40-59) Test 04/13/25 02:50 04/13/25 00:06 Troponin I High Sensitivity 135 ng/L (</=34) Thyroid Stimulating Hormone (TSH) 0.38 uIU/mL (0.55-4.78) Hemoglobin A1c 5.4 % A1C (<5.7) Other Laboratory Tests 04/15/25 07:52 04/14/25 04:57 Brief Hx & Hospital Course: This is an 85-year-old female with past medical history of hypertension and asthma came to the hospital due to nausea, vomiting and dizziness since 3 days. She also reports of epigastric pain and diarrhea 2 days back. She denies chest pain, shortness of breaths, sputum, any recent sick contacts. Patient also had troponin elevation, was seen in Cardiology consult. Underwent LHC see operative report below. Patient will be started on blood pressure medications. Patient will need to see Dr. Self as outpatient. Operations or Procedures Operative Report CARDIAC OILSEED MEAT PRESSER PROCEDURE REPORT [place], [place] Date of Service: 04/14/25 Cashier Gambling: Phoenix Fox MD PROCEDURES PERFORMED: Coronary angiogram, left heart catheterization, conscious sedation administration and supervision, less than 15 minutes; fluoroscopy use and interpretation. US guided vascular access saved to pacs system PREOPERATIVE DIAGNOSES: ACS POSTOP DIAGNOSIS: cad DESCRIPTION OF PROCEDURE: The patient or appropriate family signed informed consent understanding the risks, benefits and alternatives of the procedure, they wished to proceed. The patient was brought to the cardiac senior label specialist in [place] state. The patient was prepped in a sterile fashion. Sedation was used per cardiac cath protocol. I administered 2 mL of 2% lidocaine to the right wrist. With an antegrade front wall puncture. I cannulated the right radial artery and placed a 6-Portuguese Glidesheath slender. I used US guidance and assessed a patent R radial artery. Next, an intra-arterial spasmolytic was administered. Next, a - 5French [place] catheter and were used for coronary angiogram and LVEDP measurement and pressure pullback. At the completion of procedure, all guides and wires were removed, and there were no immediate complications. FINDINGS: RCA: Moderate vessel off the right sinus of Valsalva, there is no severe flow limiting stenosis. 30% ostial stenosis. super dominant vessel. LEFT MAIN: Moderate size left main, it bifurcates into LAD and circumflex. no severe stenosis. mild proximal plaque CIRCUMFLEX: Moderate caliber vessel coming off the left main with no flow limiting stenosis. LAD: LAD is a moderate caliber vessel coming of the left main. 60% proximal stenosis noted. distal LAD is small vessel LVEDP of 12 mmhg CONCLUSIONS: 1. moderate non critical CAD 2. severe frailty, pt weights 36 kg per notes 3. severe HTN, bp 198 during [facility] PLAN: Aggressive risk factor modification and medical management for the patient. APPROVED REPORT EXAM: Two-dimensional and M-mode echocardiogram with Doppler and color Doppler. Blood Pressure: 135/75 mmHg INDICATION Chest Pain RISK FACTORS Height: 5'0", Weight: 90 DIMENSIONS LVDd 4.6 (3.8-5.7cm) LA (2D) 3.5 (1.9-4.0cm) Aortic Root 2.7 (2.0- 3.7cm) LVDs 3.3 (2.5-4.0cm) LA (MM) (1.9-4.0cm) Aortic Cusp Exc 1.4 (1.5- 2.0cm) EF (%) 50.0 (55-70%) Rt. Atrium 4.0 (1.9-4.0cm) Asc. Aorta cm IVSd 1.1 (0.7-1.1cm) RV (D) 3.1 (1.8-2.4cm) PWd 1.1 (0.7-1.1cm) Mitral Valve Mitral Mitral Stenosis E wave 0.56m/s MV Mean GR. mmHg A wave 1.07m/s MV Peak GR. mmHg E/A ratio 0.5 2D MVA cm2 DECEL Time 432ms PRESS 1/2 Time ms Aortic Valve Aortic Valve Aortic Stenosis V1 0.90m/s AO Mean GR. 5mmHg V2 1.49m/s AO Peak GR. 9mmHg LVOT Diameter 1.7 (1.8-2.4cm) Doppler DAR 1.37cm2 AI P 1/2 Time 822.79ms Pulmonic Valve V2 0.94m/s Tricuspid Valve TR Velocity 3.13m/s RVSP 42mmHg Other Information Technically limited study due to body habitus. Conclusion LV IS MODERATELY DILATED LOW NORMAL LV EJECTION FRACTION LV EF IS 50% NORMAL VALVES MODERATELY SEVERE AORTIC REGURGITATION SLIGHTLY DILATED RV MILD PULMONARY HYPERTENSION RVSP IS 42 MM OF HG AND IS HIGH NO EFFUSION Condition at Discharge: Poor Final Diagnosis/Problems List Chest Pain CAD Hypertensive Heart Disease Severe Aortic Regurg Discharge Disposition: Home Discharge Instruct/Medications Diet: Cardiac 2g Na,low cholest (2 gm sodium, low cholesterol) Activity: Light activity Follow Up/Referral: Dr. Self in 1 week Medications: see med [facility] Scheduled Aspirin (Aspirin Low Dose), 81 MG PO DAILY Atorvastatin Calcium (Lipitor), 1 TAB PO QPM, (Reported) Atorvastatin Calcium (Atorvastatin Calcium), 40 MG PO HS Losartan Potassium (Losartan Potassium), 1 TAB PO DAILY Theophylline (Theophylline Er), 400 MG PO TID, (Reported) Miscellaneous Medications Albuterol Sulfate (Albuterol Sulfate Hfa), 108 MCG IN, (Reported) Discharge Statement: "Patient was advised to return to the ER or call 911 if any headaches, dizziness, shortness of breath, chest pain, abdominal pain, bleeding, fevers, or worsening of medical condition. Patient was counseled about treatment plan, medications, possible side effects, patientverbalized understanding. All questions were answered to the best of my ability. This discharge took greater then 30 minutes in planning, reviewing documentation, counseling the patient, and discussing with other team members." ASSESSMENT ASSESSMENT Assessment Date of Service: Apr 15, 2025 Billing Provider: ALICIA TREVINO MD Common Visit Codes: 55554-CHD/OBS DISCH DAY >30min ALICIA TREVINO MD Apr 15, 2025 15:40
== END 2025-04-15 19:06 | disposition home or self-care (01) | DRG 281 ==
LOC: ER 23:31 → EDBD 23:31 → OVERFLOW 04-13 05:05 → TELE-WESTW 04-13 05:08
PROVIDERS: ADMIT Internal Medicine; ATTEND Internal Medicine
PROC: 4A023N7 Measurement of Cardiac Sampling and Pressure, Left Heart, Percutaneous Approach (ICD-10-PCS; principal; 2025-04-14)
PROC: B211YZZ Fluoroscopy of Multiple Coronary Arteries using Other Contrast (ICD-10-PCS; 2025-04-14)
DX: I21.4 Non-ST elevation (NSTEMI) myocardial infarction (principal); E46 Unspecified protein-calorie malnutrition; I16.1 Hypertensive emergency; Z68.1 Body mass index [BMI] 19.9 or less, adult; I25.10 Atherosclerotic heart disease of native coronary artery without angina pectoris; E87.6 Hypokalemia; J45.909 Unspecified asthma, uncomplicated; I35.1 Nonrheumatic aortic (valve) insufficiency; I10 Essential (primary) hypertension; R54 Age-related physical debility; Z79.899 Other long term (current) drug therapy
CPT/HCPCS: 36415; 71045; 80048; 80053; 80061; 81001; 83036; 83735; 84443; 84484; 85025; 85610; 85730; 86850; 86900; 86901; 93005; 93306; 93458; 94640; 96360; 99152; 99291; G0378; J2003; J2250; Q9967

== ENCOUNTER → 2025-05-22 | Outpatient (CLI) | payer OTHER ==
[~2025-05-22] MED LIST: ALBU108A5 IN; ASPI-325 PO; ATOR20TA50 PO; CARV-214 PO; LOSA-533 PO; SPIR25TA PO
[2025-05-22 08:04] LABS: Hematocrit 36.5 % (36.0-46.0); Hemoglobin 12.4 g/dL (12.2-16.2); Mean Corpuscular Hemoglobin 31.4 pg (28.0-32.0); Mean Corpuscular Volume 92.5 fL (80.0-100.0); Nucleated Red Blood Cells % 0.0 %
[2025-05-22 08:08] LABS: Urine Protein, UAD Negative (Negative)
[2025-05-22 08:26] LABS: Alanine Aminotransferase 10 U/L (7-40); Albumin 4.5 g/dL (3.2-4.8); Alkaline Phosphatase 96 U/L (46-116); Anion Gap 6 (5-15); BUN/Creatinine Ratio 21.8 (10.0-20.0); Blood Urea Nitrogen 19 mg/dL (9-23); Calcium 9.9 mg/dL (8.7-10.4); Carbon Dioxide 30 mmol/L (20-31); Chloride 104 mmol/L (98-107); Glucose 92 mg/dL (74-106); Potassium 4.5 mmol/L (3.5-5.1); Sodium 140 mmol/L (136-145); Total Protein 6.6 g/dL (5.7-8.2); Triglycerides 69 mg/dL (< 150)
[2025-05-22 08:27] LABS: Bilirubin, Total 0.9 mg/dL (0.2-1.0)
[2025-05-22 08:30] LABS: Cholesterol 241 mg/dL (< 200); HDL Cholesterol 81 mg/dL (40-59)
== END | disposition home or self-care (01) ==
LOC: LAB 07:23
PROVIDERS: ATTEND Internal Medicine
DX: E78.00 Pure hypercholesterolemia, unspecified (principal); R68.89 Other general symptoms and signs; Z13.1 Encounter for screening for diabetes mellitus
CPT/HCPCS: 36415; 80053; 80061; 81001; 83036; 85025